=== PATIENT | female | born 2005 | race Caucasian/White ===

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

== ENCOUNTER 2025-01-10 00:24 | Inpatient (IN) | payer MEDICAID ==
[2025-01-10] MEDS ORDERED: Terbutaline 1 MG/ML SDV SUBCUT PRN (01:14)
[2025-01-10] MEDS ORDERED: Carboprost Tromethamine 250 MCG/1 mL Vial IM PRN (01:14)
[2025-01-10] MEDS ORDERED: Sodium Chloride 0.9% 2.5 ML Syringe FLUSH PRN (01:14)
[2025-01-10] MEDS ORDERED: Sodium Chloride 0.9% 10 ML Syringe FLUSH PRN (01:14)
[2025-01-10] MEDS ORDERED: Ondansetron 4 MG/2 ML SDV IVPUSH PRN (01:14)
[2025-01-10] MEDS ORDERED: Water For Irrigation,Sterile 1,000 ML Container IRR PRN (01:14)
[2025-01-10] MEDS ORDERED: Oxytocin/0.9 % Sodium Chloride 30 UNIT/500 ML BAG IV SCH (01:15)
[2025-01-10 02:04] LABS: MEAN PLATELET VOLUME 10.7 fL (9.4-12.3); NRBC ABSOLUTE 0.04 K/uL (0.00-0.03); NRBC PERCENT 0.2 /100WBC (0.0-0.2); PLATELET COUNT,PLT 306 K/uL (150-400); RED BLOOD CELL COUNT 4.26 M/uL (4.10-5.30); WHITE BLOOD CELL COUNT,WBC 16.04 K/uL (4.5-13.5)
[2025-01-10 02:09] LABS: APPEARANCE,URINE SLT CLOUDY; GLUCOSE,URINE NEGATIVE (NEGATIVE); OCCULT BLOOD,URINE LARGE (NEGATIVE)
[2025-01-10 02:17] LABS: AMPHETAMINES SCREEN, URINE NEGATIVE (CUTOFF=500); BUPRENORPHINE SCREEN,URINE NEGATIVE (CUTOFF=10); METHADONE SCREEN, URINE NEGATIVE (CUTOFF=200); METHAMPHETAMINES SCREEN, URINE NEGATIVE (CUTOFF=500); OXYCODONE SCREEN,URINE NEGATIVE (CUT0FF=100); PCP SCREEN,URINE NEGATIVE (CUTOFF=25); THC SCREEN,URINE 20 NG/ML NEGATIVE (CUTOFF=50)
[2025-01-10] MEDS: Lactated Ringers 1,000 ML IV SCH (02:21)
[2025-01-10] MEDS: Oxytocin/0.9 % Sodium Chloride 30 UNIT/500 ML BAG IV SCH (02:21)
[2025-01-10 02:35] LABS: EPITHELIAL CELLS,URINE FEW (NONE-FEW)
[2025-01-10 02:37] LABS: A/G RATIO 0.6 (0.9-1.6); ALANINE AMINOTRANSFERASE,ALT 30.0 IU/L (14-63); ASPARTATE AMNIOTRANSFERASE,AST 29.0 IU/L (15-37); BILIRUBIN TOTAL 0.5 mg/dL (0.2-1.0); BLOOD UREA NITROGEN,BUN 15.0 mg/dL (7.0-18.0); CARBON DIOXIDE,CO2 23.5 mmol/L (21.0-32.0); CHLORIDE,CL 103.0 mmol/L (98-107); CREATININE 0.8 mg/dL (0.6-1.0); EST CRCL DRUG DOSING (CG) 97.67 mL/min; GLUCOSE RANDOM 95.0 mg/dL (74-106); POTASSIUM,K 4.3 mmol/L (3.5-5.1); PROTEIN TOTAL,TP 6.1 g/dL (6.4-8.2); SODIUM,NA 139.0 mmol/L (136-145)
[2025-01-10 02:38] LABS: ESTIMATED GFR 109.0 mL/min (>60)
[2025-01-10] MEDS: Butorphanol 1 MG/ML SDV IVPUSH PRN (06:38)
[2025-01-10] MEDS: Ropivacaine HCl/PF 200 ML ONE (15:12)
[2025-01-10] MEDS ORDERED: ePHEDrine 50 MG/ML SDV IVPUSH PRN (15:19)
[2025-01-10] MEDS ORDERED: dexmedeTOMIDine HCl 200 MCG/2 ML SDV EPIDUR SCH (15:30)
[2025-01-10] MEDS ORDERED: Ropivacaine HCl/PF 400 MG in Premix Bag 1 BAG EPIDUR SCH (15:30)
[2025-01-11 00:37] LABS: PH,UMBILICAL ARTERIAL 7.29 (7.18-7.38); PH,UMBILICAL VENOUS 7.37 (7.25-7.45)
[2025-01-11] MEDS: Lanolin 100% Cream 7 GM Tube TOP PRN (02:18)
[2025-01-11] MEDS: Benzocaine/Menthol 20%-0.5% Spray 78 GM Cannister TOP PRN (02:19)
[2025-01-11] MEDS: Witch Hazel Medicated Pads 40/Jar TOP PRN (02:19)
[2025-01-11] MEDS ORDERED: ePHEDrine 50 MG/ML SDV IVPUSH PRN (02:47)
[2025-01-11] MEDS ORDERED: Ropivacaine HCl/PF 400 MG in Premix Bag 1 BAG EPIDUR SCH (03:00)
[2025-01-11] MEDS ORDERED: dexmedeTOMIDine HCl 200 MCG/2 ML SDV EPIDUR SCH (03:00)
[2025-01-11 05:37] LABS: MEAN PLATELET VOLUME 10.5 fL (9.4-12.3); NRBC ABSOLUTE 0.00 K/uL (0.00-0.03); NRBC PERCENT 0.0 /100WBC (0.0-0.2); PLATELET COUNT,PLT 259 K/uL (150-400); RED BLOOD CELL COUNT 3.66 M/uL (4.10-5.30); WHITE BLOOD CELL COUNT,WBC 22.25 K/uL (4.5-13.5)
[2025-01-11] MEDS ORDERED: Benzocaine/Menthol 20%-0.5% Spray 78 GM Cannister TOP PRN (08:27)
[2025-01-11] MEDS ORDERED: Lanolin 100% Cream 7 GM Tube TOP PRN (08:27)
[2025-01-11] MEDS ORDERED: Witch Hazel Medicated Pads 40/Jar TOP PRN (08:27)
[2025-01-11 08:34] LABS: PH,UMBILICAL ARTERIAL 7.29 (7.18-7.38); PH,UMBILICAL VENOUS 7.37 (7.25-7.45)
[2025-01-12 06:08] LABS: MEAN PLATELET VOLUME 10.3 fL (9.4-12.3); NRBC ABSOLUTE 0.00 K/uL (0.00-0.03); NRBC PERCENT 0.0 /100WBC (0.0-0.2); PLATELET COUNT,PLT 254 K/uL (150-400); RED BLOOD CELL COUNT 3.37 M/uL (4.10-5.30); WHITE BLOOD CELL COUNT,WBC 16.72 K/uL (4.5-13.5)
[2025-01-12] MEDS: Nalbuphine 10 MG/1 ML Vial IV ONE (07:28)
[2025-01-12] MEDS: dexmedeTOMIDine HCl 200 MCG/2 ML SDV ONE (07:29)
== END 2025-01-12 17:45 | disposition home or self-care (01) | DRG 806 ==
LOC: MW.OBCHECK 00:24 → MW.OB 00:25 → OBSVTOIN 01-11 03:04 → MW.OB 01-12 13:17
PROVIDERS: ADMIT Obstetrics & Gynecology; ATTEND Obstetrics & Gynecology
PROC: 10E0XZZ Delivery of Products of Conception, External Approach (ICD-10-PCS; principal; 2025-01-11)
PROC: 0KQM0ZZ Repair Perineum Muscle, Open Approach (ICD-10-PCS; 2025-01-11)
PROC: 4A1HXCZ Monitoring of Products of Conception, Cardiac Rate, External Approach (ICD-10-PCS; 2025-01-11)
PROC: 10907ZC Drainage of Amniotic Fluid, Therapeutic from Products of Conception, Via Natural or Artificial Opening (ICD-10-PCS; 2025-01-11)
PROC: 3E0DXGC Introduction of Other Therapeutic Substance into Mouth and Pharynx, External Approach (ICD-10-PCS; 2025-01-11)
PROC: 3E033VJ Introduction of Other Hormone into Peripheral Vein, Percutaneous Approach (ICD-10-PCS; 2025-01-11)
PROC: 3E0R3BZ Introduction of Anesthetic Agent into Spinal Canal, Percutaneous Approach (ICD-10-PCS; 2025-01-11)
PROC: 00HU33Z Insertion of Infusion Device into Spinal Canal, Percutaneous Approach (ICD-10-PCS; 2025-01-11)
DX: O14.04 Mild to moderate pre-eclampsia, complicating childbirth (principal); D62 Acute posthemorrhagic anemia; Z37.0 Single live birth; O70.1 Second degree perineal laceration during delivery; Z3A.39 39 weeks gestation of pregnancy; O99.03 Anemia complicating the puerperium
CPT/HCPCS: 36415; 59025; 59409; 80053; 80305; 81001; 82803; 83615; 85027; 86592; 86850; 86900; 86901; A9270-GY; J0595; J0665; J2371; J2590; J2795; J7120